=== PATIENT | male | born 1925 | race Caucasian/White ===

== ENCOUNTER → 2016-05-03 | Outpatient (REF) | payer MEDICARE, OTHER | LOC: LAB 10:36 | PROVIDERS: ATTEND Nurse Practitioner Family | DX: Z53.9 Procedure and treatment not carried out, unspecified reason (principal) ==

== ENCOUNTER → 2016-05-03 | Outpatient (CLI) | payer MEDICARE, OTHER | LOC: RAD 10:19 | PROVIDERS: ATTEND Nurse Practitioner Family | DX: M25.561 Pain in right knee (principal); M11.261 Other chondrocalcinosis, right knee | CPT/HCPCS: 73562 ==